=== PATIENT | female | born 1990 | race Hispanic/Latino ===

== ENCOUNTER 2017-04-06 08:39 | Day surgery (SDC) | payer MEDICAID ==
[~2017-04-06] VITALS: Ht 160 cm; Wt 60.1 kg
[~2017-04-06 08:39] MED LIST: LEVO88TA7 PO; LIDOCAINE TP; NITRO TP; NORE0.3520 PO; SODIUM CHLORIDE 0.9% 1000ML 1,000 ML IV ONE
[2017-04-06 09:25] VITALS: BP 113/71
[2017-04-06] MEDS ORDERED: PROPOFOL 10 MG/ML 20ML VIAL IV ONE (10:39)
[2017-04-06] MEDS ORDERED: ONDANSETRON HCL 4 MG/2 ML VIAL ONE (10:46)
== END 2017-04-06 11:51 | disposition home or self-care (01) ==
LOC: DAH 08:39
PROVIDERS: ATTEND Internal Medicine
DX: K52.9 Noninfective gastroenteritis and colitis, unspecified (principal); K64.0 First degree hemorrhoids; K31.89 Other diseases of stomach and duodenum; E03.9 Hypothyroidism, unspecified
CPT/HCPCS: 43239; 45380; 81025; 88305; 88342 ×2; A4606; J2405; J2704; J7030